=== PATIENT | female | born 1960 | race Caucasian/White ===

== ENCOUNTER → 2018-01-04 | Outpatient (CLI) | payer OTHER ==
[~2018-01-04] MED LIST: CHOL400T10 PO; CYAN250013 PO; Statin PO
== END ==
LOC: STAR 12:38
PROVIDERS: ATTEND Surgery
DX: Z02.9 Encounter for administrative examinations, unspecified (principal)

== ENCOUNTER → 2018-01-10 | Outpatient (CLI) | payer OTHER | LOC: ROC 13:28 | PROVIDERS: ATTEND Radiology Radiation Oncology | DX: Z08 Encounter for follow-up examination after completed treatment for malignant neoplasm (principal); C50.411 Malignant neoplasm of upper-outer quadrant of right female breast; E78.00 Pure hypercholesterolemia, unspecified; F17.210 Nicotine dependence, cigarettes, uncomplicated; Z88.0 Allergy status to penicillin | CPT/HCPCS: 99214; G0463 ==

== ENCOUNTER 2018-01-18 12:42 | Observation (INO) | payer OTHER ==
[~2018-01-18] VITALS: Ht 152.4 cm; Wt 68.8 kg
[2018-01-18] MEDS ORDERED: LIDOCAINE-MPF 1%, 5ML ONE (13:06)
[2018-01-18] MEDS ORDERED: LACTATED RINGERS 1,000 ML IV SCH (13:48)
[2018-01-18] MEDS ORDERED: SCOPOLAMINE PATCH, 1.5MG PATCH.TD72 TD ONE ×2 (13:56→14:00)
[2018-01-18] MEDS ORDERED: GABAPENTIN 300 MG CAPSULE ONE (13:56)
[2018-01-18] MEDS ORDERED: OxyconTIN ER 10 MG TAB.ER ONE (13:57)
[2018-01-18] MEDS ORDERED: FAMOTIDINE 20 MG TABLET ONE (13:57)
[2018-01-18] MEDS ORDERED: FAMOTIDINE 20 MG TABLET PO ONE (14:00)
[2018-01-18] MEDS ORDERED: GABAPENTIN 300 MG CAPSULE PO ONE (14:00)
[2018-01-18] MEDS ORDERED: OXYcodone IR 5MG TABLET PO ONE (14:00)
[2018-01-18] MEDS ORDERED: ACETAMINOPHEN 500 MG TABLET PO ONE (14:00)
[2018-01-18] MEDS ORDERED: ISOSULFAN BLUE 10 MG/ML, 5ML IV ONE (14:24)
[2018-01-18] MEDS ORDERED: EPINEPHRINE 1 MG/ML, 1ML ONE (14:24)
[2018-01-18] MEDS ORDERED: GENTAMICIN 80 MG/2 ML ONE (14:24)
[2018-01-18] MEDS ORDERED: BACITRACIN 50,000 UNIT ONE (14:24)
[2018-01-18] MEDS ORDERED: BUPIVACAINE/PF 0.25% ONE ×2 (14:24→14:28)
[2018-01-18] MEDS ORDERED: FENTANYL PF 250 MCG/5ML ONE (14:44)
[2018-01-18] MEDS ORDERED: MIDAZOLAM 1 MG/ML, 2ML ONE (14:44)
[2018-01-18] MEDS ORDERED: DEXAMETHASONE 4 MG/ML, 5ML ONE (15:03)
[2018-01-18] MEDS ORDERED: ONDANSETRON 2MG/ML, 2ML ONE (15:03)
[2018-01-18] MEDS ORDERED: ROCURONIUM 10 MG/ML,10ML ONE (15:03)
[2018-01-18] MEDS ORDERED: PROPOFOL 10 MG/ML, 20ML ONE (15:03)
[2018-01-18] MEDS ORDERED: CEFAZOLIN 1,000 MG ONE (15:03)
[2018-01-18] MEDS ORDERED: HYDROmorphone 1 MG/ML, 1ML IV PRN (16:30)
[2018-01-18] MEDS ORDERED: MEPERIDINE/PF 25MG/0.5ML IVPush PRN (16:30)
[2018-01-18] MEDS ORDERED: ALBUTEROL SULFATE 2.5 MG/3 ML NPPB PRN (16:30)
[2018-01-18] MEDS ORDERED: OXYcodone 5 MG/5 ML ORAL.SOL UDC PO PRN (16:30)
[2018-01-18] MEDS ORDERED: FENTANYL PF 100 MCG/2ML IV PRN (16:30)
[2018-01-18] MEDS ORDERED: ONDANSETRON 2MG/ML, 2ML IVPush PRN ×2 (16:30→20:30)
[2018-01-18] MEDS ORDERED: ACETAMINOPHEN 325 MG TABLET PO PRN (16:30)
[2018-01-18] MEDS ORDERED: hydrALAzine 20 MG/ML, 1ML IV PRN (16:30)
[2018-01-18] MEDS ORDERED: MORPHINE SULFATE 4 MG/ML, 1ML IVPush PRN (20:30)
[2018-01-19 00:03] VITALS: BP 115/69
[2018-01-19] MEDS: HYDROcodone/APAP 5/325 TABLET PO PRN ×4 (02:12→12:16)
[2018-01-19 04:00] VITALS: BP 109/67
[2018-01-19 07:47] VITALS: BP 105/69
[2018-01-19] MEDS ORDERED: PNEUMOCOCCAL 23 VACCINE IM-VACC ONE (12:00)
[2018-01-19] MEDS ORDERED: HYDR-3240 PO (12:53)
[2018-01-19] MEDS ORDERED: ONDA4TAB7 PO (12:53)
== END 2018-01-19 13:25 | disposition home or self-care (01) ==
LOC: OUT 12:42 → 4NOR 19:48 → OUT 22:06 → 4NOR 22:07 → DCLOUNGE 01-19 12:52
PROVIDERS: ADMIT Surgery Plastic and Reconstructive Surgery; ATTEND Surgery Plastic and Reconstructive Surgery
DX: C50.911 Malignant neoplasm of unspecified site of right female breast (principal); I10 Essential (primary) hypertension; E78.00 Pure hypercholesterolemia, unspecified
CPT/HCPCS: 19301; 38500; 38792; 88305; 88307; 88329; 88333; A9541; C1729; G0378; J0690; J1100; J1580; J2250; J2405; J2704; J3010; J3490; J7120; J0171

== ENCOUNTER → 2018-01-26 | Outpatient (CLI) | payer OTHER ==
[~2018-01-26] MED LIST changes: +HYDR-3240 PO; +ONDA4TAB7 PO
== END ==
LOC: ROC 09:55
PROVIDERS: ATTEND Radiology Radiation Oncology
DX: Z02.9 Encounter for administrative examinations, unspecified (principal)

== ENCOUNTER → 2018-02-03 | Outpatient (CLI) | payer OTHER | END | disposition home or self-care (01) | LOC: PETCFH 13:41 | PROVIDERS: ATTEND Internal Medicine Hematology & Oncology | DX: C50.411 Malignant neoplasm of upper-outer quadrant of right female breast (principal) | CPT/HCPCS: 78815; A9552 ==

== ENCOUNTER 2018-02-17 07:06 | Day surgery (SDC) | payer OTHER ==
[~2018-02-17] VITALS: Ht 152.4 cm; Wt 68.2 kg
[2018-02-17 07:29] VITALS: BP 126/90
[2018-02-17] MEDS ORDERED: LACTATED RINGERS 1,000 ML IV SCH (07:32)
[2018-02-17] MEDS ORDERED: CEPH-368 PO (07:58)
[2018-02-17] MEDS ORDERED: ATOR20TA9 PO (07:58)
[2018-02-17] MEDS ORDERED: SCOPOLAMINE PATCH, 1.5MG PATCH.TD72 TD ONE (08:00)
[2018-02-17] MEDS ORDERED: GABAPENTIN 300 MG CAPSULE PO ONE (08:00)
[2018-02-17] MEDS ORDERED: ONDANSETRON ODT 8 MG PO ONE (08:00)
[2018-02-17] MEDS ORDERED: ACETAMINOPHEN 500 MG TABLET PO ONE (08:00)
[2018-02-17] MEDS ORDERED: FENTANYL PF 250 MCG/5ML ONE (08:27)
[2018-02-17] MEDS ORDERED: MIDAZOLAM 1 MG/ML, 2ML ONE (08:27)
[2018-02-17] MEDS ORDERED: ROCURONIUM 10MG/ML,5ML ONE (08:28)
[2018-02-17] MEDS ORDERED: PROPOFOL 10 MG/ML, 20ML ONE (08:28)
[2018-02-17] MEDS ORDERED: WATER-INJECTION,STERILE 10 ML IV ONE (08:29)
[2018-02-17] MEDS ORDERED: CEFAZOLIN 1,000 MG ONE ×2 (08:29)
[2018-02-17] MEDS ORDERED: NEOSTIGMINE 1 MG/ML, 10ML ONE (08:30)
[2018-02-17] MEDS ORDERED: GLYCOPYRROLATE 0.4 MG/2 ML, 2ML ONE (08:30)
[2018-02-17] MEDS ORDERED: BUPIVACAINE/PF-EPI 0.5% 1:200K ONE (09:05)
[2018-02-17] MEDS ORDERED: DEXAMETHASONE 4 MG/ML, 1ML ONE ×2 (09:05→09:06)
[2018-02-17] MEDS ORDERED: HEPARIN 1,000 UNITS/ML, 10ML ONE (09:06)
[2018-02-17] MEDS ORDERED: HEPARIN 5,000 UNITS/ML, 1ML ONE (09:06)
[2018-02-17] MEDS ORDERED: FENTANYL PF 100 MCG/2ML IV PRN (09:30)
[2018-02-17] MEDS ORDERED: LABETALOL 5MG/ML, 20ML IV PRN (09:30)
[2018-02-17] MEDS ORDERED: HYDROmorphone 1 MG/ML, 1ML IV PRN (09:30)
[2018-02-17] MEDS ORDERED: PROMETHAZINE 25 MG SUPP PR PRN (09:30)
[2018-02-17] MEDS ORDERED: ALBUTEROL SULFATE 2.5 MG/3 ML NPPB PRN (09:30)
[2018-02-17] MEDS ORDERED: MEPERIDINE/PF 25MG/0.5ML IVPush PRN (09:30)
[2018-02-17] MEDS ORDERED: PROMETHAZINE 25 MG/ML, 1ML IV PRN (09:30)
[2018-02-17] MEDS ORDERED: DIPHENHYDRAMINE 50 MG/ML, 1ML IVPush PRN (09:30)
[2018-02-17] MEDS ORDERED: hydrALAzine 20 MG/ML, 1ML IV PRN (09:30)
[2018-02-17] MEDS ORDERED: OXYcodone 5 MG/5 ML ORAL.SOL UDC PO PRN (09:30)
[2018-02-17] MEDS ORDERED: ONDANSETRON 2MG/ML, 2ML IVPush PRN (09:30)
[2018-02-17] MEDS ORDERED: ONDANSETRON 0.8 MG/ML ORAL SOL PO PRN (09:30)
== END 2018-02-17 12:00 ==
LOC: OUT 07:06
PROVIDERS: ATTEND Surgery
DX: Z45.2 Encounter for adjustment and management of vascular access device (principal); C50.911 Malignant neoplasm of unspecified site of right female breast; E78.5 Hyperlipidemia, unspecified; Z72.89 Other problems related to lifestyle; Z88.0 Allergy status to penicillin
CPT/HCPCS: 71045; 77001; J0690; J1100; J1644; J2250; J2704; J2710; J3010; Q0162; C1769; C1788; J7120

== ENCOUNTER → 2018-04-25 | Outpatient (CLI) | payer OTHER ==
[~2018-04-25] MED LIST changes: +ATOR20TA9 PO; +CEPH-368 PO
== END ==
LOC: ROC 11:53
PROVIDERS: ATTEND Radiology Radiation Oncology
DX: C50.411 Malignant neoplasm of upper-outer quadrant of right female breast (principal)
CPT/HCPCS: 99213; G0463

== ENCOUNTER → 2018-04-25 | Outpatient (CLI) | payer OTHER | END | disposition home or self-care (01) | LOC: CFH 09:50 | PROVIDERS: ATTEND Internal Medicine Hematology & Oncology | DX: Z13.820 Encounter for screening for osteoporosis (principal); M85.88 Other specified disorders of bone density and structure, other site; C50.411 Malignant neoplasm of upper-outer quadrant of right female breast | CPT/HCPCS: 77080 ==

== ENCOUNTER → 2018-05-05 | Outpatient (CLI) | payer OTHER ==
[~2018-05-05] MED LIST changes: +GADOBUTROL 10 MMOL/10 ML VIAL ONE
== END | disposition home or self-care (01) ==
LOC: CFH 09:01
PROVIDERS: ATTEND Radiology Radiation Oncology
DX: C50.911 Malignant neoplasm of unspecified site of right female breast (principal); D35.00 Benign neoplasm of unspecified adrenal gland; E27.9 Disorder of adrenal gland, unspecified
CPT/HCPCS: 74183; A9585

== ENCOUNTER → 2018-07-04 | Outpatient (CLI) | payer OTHER ==
[~2018-07-04] MED LIST changes: -GADOBUTROL 10 MMOL/10 ML VIAL ONE
== END | disposition home or self-care (01) ==
LOC: ROC 10:30
PROVIDERS: ATTEND Radiology Radiation Oncology
DX: C50.411 Malignant neoplasm of upper-outer quadrant of right female breast (principal); Z88.0 Allergy status to penicillin
CPT/HCPCS: 99213; G0463

== ENCOUNTER → 2018-12-02 | Outpatient (CLI) | payer OTHER ==
[~2018-12-02] MED LIST changes: +ATOR20TA37 PO; -ATOR20TA9 PO
== END | disposition home or self-care (01) ==
LOC: CFH 12:12
PROVIDERS: ATTEND Internal Medicine Hematology & Oncology
DX: Z12.31 Encounter for screening mammogram for malignant neoplasm of breast (principal); Z85.3 Personal history of malignant neoplasm of breast
CPT/HCPCS: 77067